=== PATIENT | female | born 1965 | race Caucasian/White ===

== ENCOUNTER → 2017-09-22 17:22 | Outpatient (CLI) | payer MEDICAID | END | disposition home or self-care (01) | LOC: D.CT 17:22 | DX: S09.8XXA Other specified injuries of head, initial encounter (principal); X58.XXXA Exposure to other specified factors, initial encounter ==

== ENCOUNTER 2018-08-05 13:31 | Emergency (ER) | payer MEDICAID ==
[~2018-08-05] VITALS: Ht 160 cm; Wt 63.6 kg
[2018-08-05 13:41] VITALS: Ht 160 cm; Wt 63.6 kg
[2018-08-05] MEDS ORDERED: MACROBID100 MG PO ×2 (13:42→16:50)
[2018-08-05] MEDS ORDERED: TENORMIN25 MG PO (13:44)
[2018-08-05] MEDS ORDERED: ALBUTEROL SULF8.5 GM INH (13:44)
[2018-08-05] MEDS ORDERED: NEURONTIN 300300 MG PO (13:45)
[2018-08-05] MEDS ORDERED: OMEPRAZOLE20 M1 PO (13:45)
[2018-08-05] MEDS ORDERED: LISINOPRIL10 MG PO (13:45)
[2018-08-05] MEDS ORDERED: SPIRIVA18 MCG INH (13:46)
[2018-08-05] MEDS ORDERED: REQUIP0.5 MG PO (13:46)
[2018-08-05 14:17] LABS: HEMATOCRIT 38.7 % (36.0-48.0); HEMOGLOBIN 13.7 g/dL (12-16); LYMPHOCYTES 26.7 % (15-50); MCH 32.8 pg (26.0-34.0); MCHC 35.4 g/dL (31.0-37.0); MCV 92.6 fL (80.0-100.0); MEAN PLATELET VOLUME 8.8 fL (7.4-10.4); NEUTROPHILS 65.9 % (40-80); PLATELET COUNT 329 10x3/uL (130-400); RBC 4.18 10x6/uL (4.00-5.40); RDW 12.9 % (11.5-14.5)
[2018-08-05 14:21] LABS: ALBUMIN 4.2 g/dL (3.4-5.0); ANION GAP 17.4 mmol/L (8-16); BILIRUBIN - TOTAL 0.27 mg/dL (0.2-1.3); CALCIUM 9.3 mg/dL (8.5-10.1); CARBON DIOXIDE 22.1 mmol/L (21.0-32.0); CREATININE - SERUM 0.9 mg/dL (0.6-1.3); POTASSIUM - SERUM 3.5 mmol/L (3.5-5.1); PROTEIN - SERUM 7.6 g/dL (6.4-8.2)
[2018-08-05 15:40] LABS: UDS - AMPHET NEGATIVE QUAL (NEGATIVE); UDS - BARB NEGATIVE QUAL (NEGATIVE); UDS - BENZO NEGATIVE QUAL (NEGATIVE); UDS - COCAINE NEGATIVE QUAL (NEGATIVE); UDS - OPIATE NEGATIVE QUAL (NEGATIVE); UDS - PCP NEGATIVE QUAL (NEGATIVE); UDS - THC POSITIVE QUAL (NEGATIVE)
[2018-08-05 15:51] LABS: COLOR YELLOW (YELLOW)
[2018-08-05 15:52] LABS: APPEARANCE CLEAR (CLEAR); BILIRUBIN NEGATIVE (NEGATIVE); GLUCOSE NEGATIVE (NEGATIVE); KETONE NEGATIVE (NEGATIVE); NITRITE NEGATIVE (NEGATIVE); PROTEIN NEGATIVE (NEGATIVE); UROBILINOGEN NORMAL (NORMAL)
[2018-08-06 10:31] VITALS: BP 110/52
== END 2018-08-06 10:31 ==
LOC: D.ER 13:31
PROVIDERS: Family Medicine
DX: F23 Brief psychotic disorder (principal)

== ENCOUNTER 2018-08-20 15:14 | Emergency (ER) | payer MEDICAID ==
[~2018-08-20] VITALS: Ht 160 cm; Wt 63.6 kg
[~2018-08-20 15:14] MED LIST: ALBUTEROL SULF8.5 GM INH; LISINOPRIL10 MG PO; MACROBID100 MG PO; NEURONTIN 300300 MG PO; OMEPRAZOLE20 M1 PO; REQUIP0.5 MG PO; SPIRIVA18 MCG INH; TENORMIN25 MG PO
[2018-08-20 15:18] VITALS: Ht 160 cm; Wt 63.6 kg
[2018-08-20] MEDS ORDERED: CYMBALTA30 MG PO (15:59)
[2018-08-20] MEDS ORDERED: ABILIFY10 MG PO (15:59)
[2018-08-20] MEDS ORDERED: PROPRANOLOL HCL20 MG (16:00)
[2018-08-20] MEDS ORDERED: PRINIVIL20 MG PO (16:30)
[2018-08-20] MEDS ORDERED: NORVASC5 MG PO (16:30)
[2018-08-20 16:54] LABS: BASOPHILS 0.4 % (0-2); HEMATOCRIT 38.4 % (36.0-48.0); HEMOGLOBIN 13.3 g/dL (12-16); IMMATURE GRANULOCYTES 0.2 % (0-5); LYMPHOCYTES 30.6 % (15-50); MCH 32.1 pg (26.0-34.0); MCHC 34.6 g/dL (31.0-37.0); MCV 92.8 fL (80.0-100.0); MEAN PLATELET VOLUME 8.3 fL (7.4-10.4); MONOCYTES 5.7 % (2-11); NEUTROPHILS 60.1 % (40-80); PLATELET COUNT 331 10x3/uL (130-400); RBC 4.14 10x6/uL (4.00-5.40); RDW 12.7 % (11.5-14.5)
[2018-08-20 17:09] LABS: ALBUMIN 3.9 g/dL (3.4-5.0); ALKALINE PHOSPHATASE 67 U/L (46-116); ALT (SGPT) 29 U/L (10-68); BILIRUBIN - TOTAL 0.36 mg/dL (0.2-1.3); CALC OSMOLALITY 254 mosm/kg (275-300); CALCIUM 9.2 mg/dL (8.5-10.1); CARBON DIOXIDE 25.5 mmol/L (21.0-32.0); CHLORIDE - SERUM 94 mmol/L (98-107); CREATININE - SERUM 0.7 mg/dL (0.6-1.3); GLUCOSE 120 mg/dL (74-106); POTASSIUM - SERUM 3.6 mmol/L (3.5-5.1); PROTEIN - SERUM 7.3 g/dL (6.4-8.2); SODIUM 128 mmol/L (136-145); UREA NITROGEN 3 mg/dL (7-18); eGFR NON AFRICAN AMERICAN > 90 mL/min (90-120)
[2018-08-20 17:20] LABS: THYROID STIMULATING HORMONE 1.36 uIU/mL (0.36-3.74)
[2018-08-20 17:29] LABS: APPEARANCE CLEAR (CLEAR); BILIRUBIN NEGATIVE (NEGATIVE); COLOR STRAW (YELLOW); GLUCOSE NEGATIVE (NEGATIVE); KETONE NEGATIVE (NEGATIVE); NITRITE NEGATIVE (NEGATIVE); PROTEIN NEGATIVE (NEGATIVE); SPECIFIC GRAVITY 1.005 (1.005-1.020); UROBILINOGEN NORMAL (NORMAL)
[2018-08-20 17:36] LABS: UDS - AMPHET NEGATIVE QUAL (NEGATIVE); UDS - BARB NEGATIVE QUAL (NEGATIVE); UDS - BENZO NEGATIVE QUAL (NEGATIVE); UDS - COCAINE NEGATIVE QUAL (NEGATIVE); UDS - OPIATE NEGATIVE QUAL (NEGATIVE); UDS - PCP NEGATIVE QUAL (NEGATIVE); UDS - THC NEGATIVE QUAL (NEGATIVE)
[2018-08-20 17:52] VITALS: BP 170/100
== END 2018-08-20 17:52 | disposition home or self-care (01) ==
LOC: D.ER 15:14
PROVIDERS: Emergency Medicine
DX: I10 Essential (primary) hypertension (principal); F31.5 Bipolar disorder, current episode depressed, severe, with psychotic features; E87.1 Hypo-osmolality and hyponatremia

== ENCOUNTER 2018-08-20 18:03 | Emergency (ER) | payer MEDICAID ==
[~2018-08-20] VITALS: Ht 160 cm; Wt 56.8 kg
[~2018-08-20 18:03] MED LIST changes: +ABILIFY10 MG PO; +CYMBALTA30 MG PO; +NORVASC5 MG PO; +PRINIVIL20 MG PO; +PROPRANOLOL HCL20 MG
[2018-08-20 18:11] VITALS: BP 120/87; Ht 160 cm; Wt 56.8 kg
== END 2018-08-20 18:47 | disposition left against medical advice (07) ==
LOC: D.ER 18:03
DX: I10 Essential (primary) hypertension (principal); F31.5 Bipolar disorder, current episode depressed, severe, with psychotic features; E87.1 Hypo-osmolality and hyponatremia

== ENCOUNTER → 2018-11-18 10:37 | Outpatient (CLI) | payer MEDICAID ==
[2018-08-20 18:11] VITALS: BMI 22.1
--- NOTE | 2018-11-22 12:04 | ST ---
PATIENT:ANAND DAY MEDICAL RECORD: [id number] SEX: F LOCATION:[facility] ORDER #: ADMISSION DATE: 11/18/18 AGE OF PATIENT: 52 REFERRING PHYSICIAN: INTERPRETING PHYSICIAN: RUDY CARCAMO MD DATE OF SERVICE: 11/18/2018 PROCEDURE: Nuclear stress test. INDICATIONS: Angina, hypertension, smoking, history of palpitation. She was exercised on standard Lexiscan protocol with 33 mCi of sestamibi injected at peak stress, 11 mCi used previously for rest images. FINDINGS: No gated study was performed secondary to technical difficulties. SPECT imaging: Cardiolite was used as myocardial perfusion agent. There is homogeneous uptake throughout all segments at rest and stress with no evidence of inducible ischemia or previous infarction. OVERALL IMPRESSION: 1. This is a normal nuclear stress test with no evidence of inducible ischemia or previous infarction. 2. No gated study was performed secondary to technical difficulties. In this patient with ongoing symptomatology, the current scan does not suggest the presence of hemodynamically significant coronary artery disease. Evaluate noncardiac etiology of chest pain. TRANSINT:[id number] Voice Confirmation ID: [id number] DOCUMENT ID: [id number] RUDY CARCAMO MD at 1204 CC: DAKOTAH HESS MD [id number] DICTATION DATE: 11/21/18 1151 [employer] SALESPERSON: 11/21/18 2301 DEP CLI 11/18/18 [facility] [address] [place] [address]
== END | disposition home or self-care (01) ==
LOC: D.HCCARDIO 11-15 10:00
PROVIDERS: ATTEND Internal Medicine Interventional Cardiology
DX: I20.9 Angina pectoris, unspecified (principal)